=== PATIENT | female | born 1990 | race Caucasian/White ===

== ENCOUNTER 2018-08-10 23:26 | Emergency (ER) | payer OTHER ==
[~2018-08-10] VITALS: Ht 160 cm; Wt 60.3 kg
[2018-08-10 23:35] VITALS: Ht 160 cm; Wt 60.3 kg
[2018-08-11 01:10] VITALS: BP 110/75
== END 2018-08-11 01:35 | disposition home or self-care (01) ==
LOC: ED 23:26
DX: S61.412A Laceration without foreign body of left hand, initial encounter (principal); S61.012A Laceration without foreign body of left thumb without damage to nail, initial encounter; S61.215A Laceration without foreign body of left ring finger without damage to nail, initial encounter; Y93.E9 Activity, other interior property and clothing maintenance; Y93.89 Activity, other specified; Y92.89 Other specified places as the place of occurrence of the external cause; Y99.8 Other external cause status
CPT/HCPCS: 90715; J2001